=== PATIENT | male | born 1975 | race Two or more races ===

== ENCOUNTER 2017-12-03 08:48 | Emergency (ER) | payer OTHER ==
[~2017-12-03] VITALS: Ht 170.2 cm; Wt 86.2 kg
== END 2017-12-03 09:57 | disposition home or self-care (01) ==
LOC: ER 08:48
DX: M25.562 Pain in left knee (principal)

== ENCOUNTER 2017-12-03 10:09 | Outpatient (CLI) | payer OTHER | END 2017-12-03 17:00 | disposition home or self-care (01) | LOC: MRI 10:09 | DX: S80.02XA Contusion of left knee, initial encounter (principal) | CPT/HCPCS: 73721 ==